=== PATIENT | female | born 2000 | race American Indian/Alaskan Native ===

== ENCOUNTER 2020-01-16 02:32 | Emergency (ER) | payer OTHER ==
[2020-01-16 02:38] VITALS: BP 121/55
--- NOTE | 2020-01-16 03:35 | Cat Scan Report ---
CT head/brain wo con INDICATION: pain after head injury. TECHNIQUE: All CT scans at this location are performed using the following dose modulation technique: Automated exposure control. CONTRAST: None. COMPARISON: None available. FINDINGS: The ventricular system is appropriate in size and configuration without midline shift. Nega tive for mass, stroke or hemorrhage. Imaged bones and paranasal sinuses are unremarkable. IMPRESSION: Negative CT brain without contrast. Signer Name: Darian Ozuna MD Signed: 01/16/2020 3:30 AM Workstation Name: [id number]
--- NOTE | 2020-01-16 03:38 | Emergency Department Report ---
ED General Adult HPI - General Chief complaint: Head Injury Stated complaint: HEAD INJURY Time Seen by Provider: 01/16/20 02:47 Source: patient Mode of arrival: Ambulatory Limitations: No Limitations - History of Present Illness Initial comments: 19-year-old -Cong[place] female patient without past medical history presents with complaints of posterior head injury x today while at work. Patient states a branch fell and hit her in the back of the head. She states she was wearing a helmet, however she does have mild swelling to the posterior scalp per patient. She denies any loss of consciousness, dizziness, nausea/vomiting, vision changes, numbness/tingling/weakness in her limbs, neck pain, confusion, memory loss, or difficulty with speech/ambulation. Patient rates her current headache as a 5/10 in severity. Patient works with the [employer] department. - Related Data Previous Rx's Medication Instructions Recorded Last Taken Type Ibuprofen [Motrin 800 MG tab] 800 mg PO Q8HR PRN #21 tablet 01/16/20 Unknown Rx Allergies Allergy/AdvReac Type Severity Reaction Status Date / Time No Known Allergies Allergy Unverified 01/16/20 02:43 ED Review of Systems ROS: Stated complaint: HEAD INJURY Other details as noted in HPI Constitutional: denies: chills, fever Eyes: denies: eye pain, vision change Respiratory: denies: cough, shortness of breath, wheezing Cardiovascular: denies: chest pain Gastrointestinal: denies: nausea, vomiting Skin: denies: change in color Neurological: headache. denies: weakness, numbness, paresthesias, confusion, abnormal gait Hematological/Lymphatic: denies: easy bleeding (Denies blood thinners), easy bruising ED Past Medical Hx - Past Medical History Previous Medical History?: No - Surgical History Past Surgical History?: No - Social History Smoking Status: Never Smoker Substance Use Type: None - Medications Home Medications: Home Medications Medication Instructions Recorded Confirmed Last Taken Type Ibuprofen [Motrin 800 MG tab] 800 mg PO Q8HR PRN #21 tablet 01/16/20 Unknown Rx ED Physical Exam - General Limitations: No Limitations General appearance: alert, in no apparent distress - Head Head exam: Present: atraumatic, normocephalic - Eye Eye exam: Present: normal appearance. Absent: scleral icterus - Neck Neck exam: Present: tenderness (Paravertebral tenderness, no paraspinal tenderness noted), full ROM - Respiratory Respiratory exam: Present: normal lung sounds bilaterally. Absent: respiratory distress - Cardiovascular Cardiovascular Exam: Present: regular rate, normal rhythm. Absent: systolic murmur, diastolic murmur, rubs, gallop - GI/Abdominal GI/Abdominal exam: Present: soft. Absent: tenderness - Extremities Exam Extremities exam: Present: normal inspection - Back Exam Back exam: Present: normal inspection - Neurological Exam Neurological exam: Present: alert, oriented X3, CN II-XII intact, normal gait. Absent: motor sensory deficit - Expanded Neurological Exam Expanded Cerebellar function: Finger to Nose: Normal, Heel to Beard: Normal, Romberg: Normal Sensory exam: Upper Extremity Light Touch: Normal, Lower Extremity Light Touch: Normal Motor strength exam: RUE: 5, LUE: 5, RLE: 5, LLE: 5 - Psychiatric Psychiatric exam: Present: normal affect, normal mood - Skin Skin exam: Present: warm, dry, intact, normal color. Absent: rash, cyanosis, diaphoretic, erythema ED Course Vital Signs 01/16/20 01/16/20 02:36 04:27 Temperature 97.7 F Pulse Rate 85 86 Respiratory 18 17 Rate Blood Pressure 121/55 O2 Sat by Pulse 98 100 Oximetry ED Medical Decision Making - Radiology Data Radiology results: report reviewed CT head/brain wo con INDICATION: pain after head injury. TECHNIQUE: All CT scans at this location are performed using the following dose modulation technique: Automated exposure control. CONTRAST: None. COMPARISON: None available. FINDINGS: The ventricular system is appropriate in size and configuration without midline shift. Negative for mass, stroke or hemorrhage. Imaged bones and paranasal sinuses are unremarkable. IMPRESSION: Negative CT brain without contrast. CT cervical spine wo con INDICATION: pain after head injury. TECHNIQUE: All CT scans at this location are performed using the following dose modulation technique: Automated exposure control. CONTRAST: None. COMPARISON: None available. FINDINGS: Negative for fracture, subluxation or significant degenerative change. Loss of the normal cervical lordosis with mild kyphosis at C4-C5. There is mild splaying of the posterior elements at this level. No soft tissue fluid collection or hematoma. IMPRESSION: 1. Negative for fracture or subluxation. 2. Mild kyphosis at C4-C5 splaying of the posterior elements. This is likely due to spasm/positioning unless the patient has symptoms of this level. - Medical Decision Making Pt here with posterior head injury caused by a tree branch that fell. Mild upper cervical tenderness to palpation noted on exam-CT head and neck performed and are negative for acute findings. Neuro exam is normal. Vitals are normal. Pt is well appearing and stable or d/c home. Discussed possible concussion, brain rest, and need for follow-up with primary care within 2 to 3 days. Strict return precautions were discussed in detail with patient who verbalizes understanding. Critical care attestation.: If time is entered above; I have spent that time in minutes in the direct care of this critically ill patient, excluding procedure time. ED Disposition Clinical Impression: Acute headache due to traumatic injury of head Head injury due to trauma Qualifiers: Encounter type: initial encounter Qualified Code(s): S09.90XA - Unspecified injury of head, initial encounter Disposition: - TO HOME OR SELFCARE Is pt being admited?: No Condition: Stable Instructions: Concussion (ED), Minor Head Injury (ED) Additional Instructions: Follow-up with the workers comp physician within 2 to 3 days. Prescriptions: Ibuprofen [Motrin 800 MG tab] 800 mg PO Q8HR PRN #21 tablet PRN Reason: pain Referrals: PRIMARY CARE,MD [Primary Care Provider] - 3-5 Days
--- NOTE | 2020-01-16 03:40 | Cat Scan Report ---
CT cervical spine wo con INDICATION: pain after head injury. TECHNIQUE: All CT scans at this location are performed using the following dose modulation technique: Automated exposure control. CONTRAST: None. COMPARISON: None available. FINDINGS: Negative for fracture, subluxation or significant degenerative change. Loss of the normal c ervical lordosis with mild kyphosis at C4-C5. There is mild splaying of the posterior elements at thi s level. No soft tissue fluid collection or hematoma. IMPRESSION: 1. Negative for fracture or subluxation. 2. Mild kyphosis at C4-C5 splaying of the posterior elements. This is likely due to spasm/positioning unless the patient has symptoms of this level. Signer Name: Darian Ozuna MD Signed: 01/16/2020 3:36 AM Workstation Name: [id number]
[2020-01-16] MEDS ORDERED: IBUPROFEN 800 MG TAB PO ONE (04:06)
== END 2020-01-16 04:28 | disposition home or self-care (01) ==
LOC: ED 02:32
DX: S09.90XA Unspecified injury of head, initial encounter (principal); R51 Headache; Z79.1 Long term (current) use of non-steroidal anti-inflammatories (NSAID); W19.XXXA Unspecified fall, initial encounter; Y93.89 Activity, other specified; Y92.89 Other specified places as the place of occurrence of the external cause; Y99.8 Other external cause status
CPT/HCPCS: 70450; 72125